=== PATIENT | female | born 1995 | race Caucasian/White ===

== ENCOUNTER 2021-12-10 19:12 | Emergency (ER) | payer OTHER ==
[2021-12-10] MEDS ORDERED: AMOX TR-K CLV1 EAC4 PO (21:23)
[2021-12-10] MEDS ORDERED: MOTRIN600 MG PO (21:23)
== END 2021-12-10 21:50 | disposition home or self-care (01) ==
LOC: FER 19:12
DX: K08.89 Other specified disorders of teeth and supporting structures (principal); I10 Essential (primary) hypertension; F17.290 Nicotine dependence, other tobacco product, uncomplicated; G40.909 Epilepsy, unspecified, not intractable, without status epilepticus; Z79.899 Other long term (current) drug therapy
CPT/HCPCS: 99282; Q0163